=== PATIENT | female | born 1960 | race Caucasian/White ===

== ENCOUNTER 2021-12-03 08:31 | Day surgery (SDC) | payer BC, OTHER ==
[2021-12-03 10:14] VITALS: RESP 18; BMI 37.0
[2021-12-03] MEDS ORDERED: MIDAZOLAM HCL 2 MG/2 ML SINGLE DOSE VIAL ONE (10:44)
[2021-12-03] MEDS ORDERED: ROPIVACAINE HCL/PF 100 MG/20 ML VIAL ONE (10:44)
[2021-12-03] MEDS ORDERED: PROPOFOL 20 ML ONE (11:02)
[2021-12-03] MEDS ORDERED: DEXAMETHASONE SOD PHOSPHATE 4 MG/1 ML VIAL ONE (11:20)
[2021-12-03] MEDS ORDERED: ceFAZolin SODIUM 1 GM VIAL ONE (11:29)
[2021-12-03] MEDS ORDERED: KETOROLAC TROMETHAMINE 30 MG/1 ML VIAL ONE (12:01)
[2021-12-03] MEDS ORDERED: ONDANSETRON 4 MG/2 ML VIAL ONE ×2 (12:01→13:00)
[2021-12-03] MEDS ORDERED: ACETAMINOPHEN 1000 MG/100 ML BAG IVPB ONE (12:31)
[2021-12-03] MEDS ORDERED: oxyCODONE HCL 5 MG TABLET PO PRN ×2 (12:31)
[2021-12-03] MEDS ORDERED: ONDANSETRON 4 MG/2 ML VIAL IVPUSH PRN (12:31)
[2021-12-03] MEDS ORDERED: PROMETHAZINE HCL 25 MG/1 ML VIAL IVPUSH PRN (12:31)
[2021-12-03] MEDS ORDERED: FENTANYL CITRATE/PF 50 MCG/ML VIAL ONE ×3 (12:34→12:59)
[2021-12-03] MEDS ORDERED: LACTATED RINGERS SOLUTION 1,000 ML IV SCH (12:45)
[2021-12-03 13:55] VITALS: TEMP 97.7
[2021-12-03 14:39] VITALS: BP 145/79; PULSE 85
== END 2021-12-03 14:46 | disposition home or self-care (01) ==
LOC: FASU 08:31
PROVIDERS: ATTEND Orthopaedic Surgery
PROC: 0LN60ZZ Release Left Lower Arm and Wrist Tendon, Open Approach (ICD-10-PCS; 2021-12-03)
PROC: 0PSJ04Z Reposition Left Radius with Internal Fixation Device, Open Approach (ICD-10-PCS; principal; 2021-12-03 11:33)
DX: S52.572A Other intraarticular fracture of lower end of left radius, initial encounter for closed fracture (principal); X58.XXXA Exposure to other specified factors, initial encounter; Y92.9 Unspecified place or not applicable; Y93.9 Activity, unspecified
CPT/HCPCS: 25609; C1713; 73110-TC-LT-FY; 94760